=== PATIENT | male | born 1970 | race African-American/Black ===

== ENCOUNTER → 2018-04-10 | Outpatient (CLI) | payer OTHER ==
--- NOTE | 2018-04-11 07:47 | CT ---
EXAMINATION TYPE: CT soft tissue neck w con DATE OF EXAM: 04/10/2018 COMPARISON: None HISTORY: 47-year-old male swelling to left side of neck, dysphagia TECHNIQUE: Contiguous axial scanning of the soft tissues of the neck performed with IV Contrast, tesfaye ent injected with 100 mL of Isovue 300. Coronal/sagittal reconstructions performed. CT DLP: 281.9 mGycm Automated exposure control for dose reduction was used. FINDINGS: Visualized intracranial structures, orbits and globes, and mastoid air cells appear clear. Small 6 mm osteoma within the left ethmoid air cells. The nasopharynx is clear. The oropharynx is clear. The epiglottis and prevertebral soft tissues appear within normal limits. The glottic and subglottic airway as well as the tracheal column appear clear. Mild upper lung paraseptal emphysema. The thyroid gland is satisfactory. There seems to be some focal skin thickening measuring 2.3 cm AP b y 2.2 cm craniocaudal along the right side of the jaw, axial image 42, coronal image 19, and sagittal image 24. There are scattered nonenlarged lymph nodes throughout both sides of the neck measuring up to 1 cm. N o definite cervical lymphadenopathy by CT size criteria. Only one right mandibular molar remains. This shows a large dental caries, refer to sagittal image 29 . The left maxillary molars are impacted or angulated. 1 right mandibular molar remains and is angulate d. Bones: Moderate disc/endplate degenerative change particularly from C3 through C6 levels with reversa l of the normal cervical lordosis. IMPRESSION: 1. PERIODONTAL DISEASE. ONLY 1 RIGHT MANDIBULAR MOLAR REMAINS, IS ANGULATED, AND SHOWS A LARGE DENTAL CARIES. 2. ONE RIGHT MANDIBULAR MOLAR ALSO REMAINS AND IS ANGULATED. THE LEFT MAXILLARY MOLARS ARE EITHER IMP ACTED OR ANGULATED. 3. FOCAL SKIN THICKENING MEASURING 2.3 X 2.2 CM ALONG THE RIGHT SIDE OF THE JAW. FURTHER CLINICAL COR RELATION RECOMMENDED TO ASSESS FOR A DERMATOLOGIC ABNORMALITY HERE.
== END | disposition home or self-care (01) ==
LOC: RADCTMAIN 15:15
PROVIDERS: ATTEND Family Medicine
DX: K05.6 Periodontal disease, unspecified (principal)
CPT/HCPCS: 70491; Q9967

== ENCOUNTER → 2018-07-06 | Outpatient (CLI) | payer OTHER ==
--- NOTE | 2018-07-06 12:39 | FL ---
EXAMINATION TYPE: FL barium swallow DATE OF EXAM: 07/06/2018 CLINICAL HISTORY: Dysphasia TECHNIQUE: A double contrast esophagram is performed utilizing air and barium. A total of 77 second s of fluoroscopic time was utilized during procedure. Approximately 15 images submitted. COMPARISON: None FINDINGS: The esophagus shows normal motility and emptying into the stomach. No evidence of hiatal h ernia or stricture noted. No significant gastroesophageal reflux was seen during real time performanc e of this study. Hypertrophic spurring is noted involving the cervical spine. Prominent cricopharyngeal muscle noted. There is mild delay at the level the GE junction. There may be a mild smooth tapered narrowing of the distal esophagus. Mild fold thickening not excluded. IMPRESSION: 1. There is a mild smooth tapering of the distal esophagus with larger caliber proximal esophagus. A stricture would be in the differential diagnosis. Recommend direct visualization.
== END ==
LOC: RADFLWHC 10:49
PROVIDERS: ATTEND Family Medicine
DX: R13.10 Dysphagia, unspecified (principal)
CPT/HCPCS: 74220